=== PATIENT | female | born 1950 | race Caucasian/White ===

== ENCOUNTER 2020-01-28 05:30 | Inpatient (IN) ==
[2020-01-28] MEDS ORDERED: VANCOMYCIN 1,000 MG VIAL ONE (05:45)
[2020-01-28] MEDS ORDERED: ceFAZolin 1,000 MG VIAL ONE (05:46)
[2020-01-28] MEDS ORDERED: ceFAZolin 1,000 MG in SYRINGE 1 EACH IV ONE (06:00)
[2020-01-28] MEDS ORDERED: VANCOMYCIN INJ 1,000 MG in SODIUM CHLORIDE 0.9% 250 ML IV ONE (06:00)
[2020-01-28] MEDS ORDERED: ACETAMINOPHEN 500 MG TABLET PO ONE (06:20)
[2020-01-28] MEDS ORDERED: SCOPOLAMINE 1.5 MG PATCH TRANSDERM ONE (06:20)
[2020-01-28] MEDS ORDERED: FAMOTIDINE 20 MG TABLET PO ONE (06:20)
[2020-01-28] MEDS ORDERED: GABAPENTIN 400 MG CAPSULE PO ONE (06:20)
[2020-01-28] MEDS ORDERED: DIAZEPAM 5 MG TABLET PO ONE (06:20)
[2020-01-28] MEDS ORDERED: DIAZEPAM 5 MG TABLET ONE (06:24)
[2020-01-28] MEDS ORDERED: LACTATED RINGERS 1,000 ML IV SCH (06:30)
[2020-01-28] MEDS ORDERED: GABAPENTIN 400 MG CAPSULE ONE (06:32)
[2020-01-28] MEDS ORDERED: PROMETHAZINE 25 MG/1 ML VIAL IM PRN (07:00)
[2020-01-28] MEDS ORDERED: TEMAZEPAM 7.5 MG CAPSULE PO PRN (07:00)
[2020-01-28] MEDS ORDERED: ONDANSETRON 4 MG/2 ML VIAL IV PRN ×2 (07:00→09:08)
[2020-01-28] MEDS ORDERED: diphenhydrAMINE CAP 25 MG CAPSULE PO PRN (07:00)
[2020-01-28] MEDS ORDERED: MAGNESIUM HYDROXIDE SUSP 30 ML UDCUP PO PRN (07:00)
[2020-01-28] MEDS ORDERED: BISACODYL 10 MG SUPP RECTAL PRN (07:00)
[2020-01-28] MEDS ORDERED: LACTULOSE 20 GM/30 ML UDCUP PO PRN (07:00)
[2020-01-28] MEDS ORDERED: LIDOCAINE 2% 5 ML VIAL ONE ×2 (08:43→09:46)
[2020-01-28] MEDS ORDERED: BUPIVACAINE SPINAL 0.75% 2 ML AMP SPINAL ONE (08:43)
[2020-01-28] MEDS ORDERED: propofoL 200 MG/20 ML VIAL IV ONE (08:43)
[2020-01-28] MEDS ORDERED: PHENYLEPHRINE 1 MG/10 ML SYRINGE IV ONE (08:44)
[2020-01-28] MEDS ORDERED: LACTATED RINGERS 1,000 ML IV ONE (08:44)
[2020-01-28] MEDS ORDERED: fentaNYL 100 MCG/2 ML VIAL ONE (08:44)
[2020-01-28] MEDS ORDERED: MIDAZOLAM 2 MG/2 ML VIAL ONE (08:44)
[2020-01-28] MEDS ORDERED: SODIUM CHLORIDE 0.9% 100 ML IV ONE (08:45)
[2020-01-28] MEDS: HYDROmorphone 2 MG/1 ML VIAL IV PRN ×2 (09:10→09:20)
[2020-01-28] MEDS ORDERED: ROPIVACAINE 0.5% 30 ML VIAL ONE (09:46)
[2020-01-28] MEDS: DOCUSATE SODIUM 100 MG CAPSULE PO SCH ×2 (10:38→21:20)
[2020-01-28] MEDS: MORPHINE 4 MG/1 ML VIAL IV PRN ×2 (12:04→21:21)
[2020-01-28] MEDS: ceFAZolin 2,000 MG in PREMIX 1 EACH IV SCH ×2 (13:50→21:26)
[2020-01-29] MEDS: MORPHINE 4 MG/1 ML VIAL IV PRN ×6 (00:32→23:42)
[2020-01-29] MEDS: FONDAPARINUX 2.5 MG/0.5 ML SYRINGE SUBCUT SCH (05:58)
[2020-01-29 06:52] LABS: Basophils # 0.1 10*3/uL (0.0-0.2); Basophils % 0.6 % (0.0-0.8); Eosinophils # 0.1 10*3/uL (0.0-0.87); Eosinophils % 0.6 % (0.00-10.9); Hematocrit 37.6 VOL% (35.7-47.0); Hemoglobin 12.2 GM/DL (12.0-16.0); Immature Granulocytes % 0.4 %; Immature Granulocytes Absolute 0.05 #; Lymphocytes # 1.6 10*3/uL (1.4-4.0); Lymphocytes % 13.1 % (21.3-54.2); Mean Corpuscular HGB Conc 32.4 GM/DL (32-36); Mean Corpuscular Volume 91.9 FL (87-102); Mean Platelet Volume 10.6 FL (9.6-12.0); Monocytes % 10.6 % (1.7-12.7); Neutrophils % 74.7 % (38.7-73.9); Platelet Count 203 T/CUMM (130-400); Red Blood Count 4.09 MC/CUMM (3.8-5.5); Red Cell Distribution Width 12.6 % (9.3-17.3)
[2020-01-29 07:20] LABS: Calcium 8.8 MG/DL (8.5-10.1)
[2020-01-29] MEDS: MELOXICAM 7.5 MG TABLET PO SCH (08:30)
[2020-01-29] MEDS: DOCUSATE SODIUM 100 MG CAPSULE PO SCH ×2 (08:30→21:31)
[2020-01-29] MEDS: PANTOPRAZOLE 40 MG TABLET PO SCH (08:30)
[2020-01-30] MEDS: MORPHINE 4 MG/1 ML VIAL IV PRN (05:13)
[2020-01-30] MEDS: FONDAPARINUX 2.5 MG/0.5 ML SYRINGE SUBCUT SCH (05:14)
[2020-01-30] MEDS: PANTOPRAZOLE 40 MG TABLET PO SCH (08:37)
[2020-01-30] MEDS: DOCUSATE SODIUM 100 MG CAPSULE PO SCH (08:37)
[2020-01-30] MEDS: MELOXICAM 7.5 MG TABLET PO SCH (08:37)
[2020-01-30 09:54] VITALS: BP 152/68
== END 2020-01-30 11:45 | disposition home health service (06) | DRG 470 ==
LOC: EDBD → N.OR 05:30 → N.SDSINP 05:33 → N.3E 10:33
PROVIDERS: ADMIT Orthopaedic Surgery; ATTEND Orthopaedic Surgery